=== PATIENT | male | born 1985 | race Caucasian/White ===

== ENCOUNTER 2017-02-05 22:28 | Inpatient (IN) | payer MEDICAID ==
[2017-02-05] MEDS ORDERED: ONDANSETRON 4 MG/2 ML VIAL ONE (22:39)
[2017-02-05] MEDS ORDERED: ONDANSETRON 4 MG/2 ML VIAL IVP ONE (22:44)
[2017-02-05] MEDS ORDERED: NS 1,000 ML IV ONE ×2 (22:44→22:46)
[2017-02-05] MEDS ORDERED: LORazepam 2 MG/ML INJ IVP ONE ×2 (22:46→23:20)
[2017-02-05] MEDS ORDERED: chlordiazePOXIDE 25 MG CAP PO ONE (22:46)
[2017-02-05 22:51] LABS: % IMMATURE GRANULYOCYTES 0.7 % (0.0-1.1); ABSOLUTE IMMATURE GRANULOCYTES 0.09 10^3/uL (0.00-0.10); ADD DIFF? NO; ADD MORPH? NO; ADD SCAN? NO; ATYPICAL LYMPHOCYTE FLAG 0 (0-99); FRAGMENT RBC FLAG 0 (0-99); HEMATOCRIT 53.6 % (40.0-51.0); HEMOGLOBIN 19.9 g/dL (13.7-17.5); LEFT SHIFT FLG 0 (0-99); LIPEMIA HEMOLYSIS FLAG 90 (0-99); MEAN CELL HEMOGLOBIN 35.3 pg (27.9-34.1); MEAN CELL HEMOGLOBIN CONCENTR. 37.1 g/dL (32.4-36.7); MEAN CELL VOLUME 95.2 fL (81.5-99.8); MEAN PLATELET VOLUME 10.4 fL (8.7-11.7); PLATELET CLUMPS FLAG 0 (0-99); PLATELET COUNT 225 10^3/uL (150-400); RED BLOOD CELL COUNT 5.63 10^6/uL (4.40-6.38); RED CELL DISTRIBUTION WIDTH 13.2 % (11.5-15.2)
[2017-02-05 22:58] LABS: ALANINE AMINOTRANSFERASE 78 IU/L (21-72); ALKALINE PHOSPHATASE 81 IU/L (38-126); ANION GAP 35 mEq/L (8-16); ASPARTATE AMINOTRANSFERASE 80 IU/L (17-59); BILIRUBIN,TOTAL 1.8 mg/dL (0.1-1.4); BILIRUBIN-CONJUGATED 0.8 mg/dL (0.0-0.5); CALCIUM 10.3 mg/dL (8.5-10.4); CARBON DIOXIDE 11 mEq/l (22-31); CHLORIDE 95 mEq/L (97-110); CREATININE 0.7 mg/dL (0.7-1.3); GLOMERULAR FILTRATION RATE > 60; GLUCOSE 70 mg/dL (70-100); POTASSIUM 4.7 mEq/L (3.5-5.2); SODIUM 141 mEq/L (134-144); TOTAL PROTEIN 8.9 g/dL (6.3-8.2)
[2017-02-05 23:13] LABS: ALBUMIN > 6.0 g/dL (3.5-5.0)
[2017-02-05 23:31] LABS: ETHANOL SERUM 156 mg/dL (0-10)
--- NOTE | 2017-02-05 23:50 | EDPHY ---
H & P Stated Complaint: Nausea and vomiting, ETOH this morning - Personal History Current Tetanus/Diphtheria Vaccine: Yes Tetanus Vaccine Date: 04/2013 - Medical/Surgical History Hx Asthma: No Hx Chronic Respiratory Disease: No Hx Diabetes: No Hx Cardiac Disease: No Hx Renal Disease: No Hx Cirrhosis: No Hx Alcoholism: Yes Hx HIV/AIDS: No Hx Splenectomy or Spleen Trauma: No Other PMH: PMH: ETOH; adhd; depression; antisocial personality disorder;. PSH: denies - Social History Smoking Status: Former smoker Time Seen by Provider: 02/05/17 22:42 HPI/ROS: Chief complaint: Alcohol withdrawal History of present illness: This is a 31-year-old male who presents to the emergency department for evaluation of what he believes is alcohol withdrawal. Patient reports he does have a history of alcohol abuse. Patient went on an alcohol binge over the last few days. His last drink was earlier this morning. States he started to feel unwell describing generalized malaise, nausea and vomiting and some tremulousness. He has gone through withdrawal before. Denies other associated signs or symptoms at this time. Review of systems: A 10 point review of systems was obtained and other than described above was negative (Alvino Maxwell) - Physical Exam Exam: General Appearance: Alert, unwell appearing. Eyes: Pupils equal and round no pallor or injection. ENT, Mouth: Mucous membranes moist. Respiratory: There are no retractions, lungs are clear to auscultation. Cardiovascular: Tachycardic with regular rhythm. Gastrointestinal: Abdomen is soft and non tender, no masses, bowel sounds normal. Neurological: Alert and oriented x4. Strength and sensation intact and symmetrical. Skin: Warm and dry, no rashes. Musculoskeletal: Neck is supple non tender. Extremities are symmetrical, full range of motion. Psychiatric: There is no agitation (Alvino Maxwell) Constitutional: Initial Vital Signs Temperature (C) 36.9 C 02/05/17 22:34 Heart Rate 128 H 02/05/17 22:34 Respiratory Rate 20 02/05/17 22:34 Blood Pressure 144/107 H 02/05/17 22:34 O2 Sat (%) 94 02/05/17 22:34 O2 Delivery Mode Room Air Allergies/Adverse Reactions: No Known Allergies Allergy (Verified 06/01/13 22:41) Home Medications: Medication Instructions Recorded traZODone [traZODONE 100MG (RX)] 100 mg PO HS 06/01/13 FLUoxetine [Prozac] 40 mg PO DAILY 06/02/13 Glucosamine/Chondroitin 1 tab PO DAILY 06/02/13 [Glucosamine/Chondroitin (OTC)] Multivitamins [Tab-A-Yo] 1 tab PO DAILY 06/02/13 Naltrexone HCl [Revia 50mg (RX)] 100 mg PO DAILY 06/02/13 Medical Decision Making ED Course/Re-evaluation: Patient discussed with my secondary supervising physician Dr. Vanessa Angeles. Patient presents to the emergency department concerned he is going through alcohol withdrawal. On presentation he is unwell appearing. Hypertensive and tachycardic. He is IV hydrated and treated with IV Ativan and oral Librium. He remains unwell appearing and tachycardic. Blood studies are concerning for significantly decreased bicarbonate, concerned for alcoholic ketoacidosis. Patient will be admitted for further evaluation and care. He is admitted to Dr. Rudi Shea. The plan has been discussed with the patient voiced understanding and agreement with it. (Alvino Maxwell) Differential Diagnosis: Included but not limited to alcohol intoxication, alcohol withdrawal, polysubstance abuse (Alvino Maxwell) Other Provider: PHYSICIAN DOCUMENTATION: The patient was evaluated and managed by the Physician Automotive Teacher. My co- signature indicates that I have reviewed this chart and I agree with the findings and plan of care as documented. I am the secondary supervising physician. (Vanessa Angeles) - Data Points Laboratory Results: Laboratory Results 02/05/17 22:33 02/05/17 22:33 02/05/17 02/05/17 22:33 22:33 WBC 13.56 10^3/uL H 10^3/uL (3.80-9.50) RBC 5.63 10^6/uL 10^6/uL (4.40-6.38) Hgb 19.9 g/dL H g/dL (13.7-17.5) Hct 53.6 % H % (40.0-51.0) MCV 95.2 fL fL (81.5-99.8) MCH 35.3 pg H pg (27.9-34.1) MCHC 37.1 g/dL H g/dL (32.4-36.7) RDW 13.2 % % (11.5-15.2) Plt Count 225 10^3/uL 10^3/uL (150-400) MPV 10.4 fL fL (8.7-11.7) Neut % (Auto) 90.0 % H % (39.3-74.2) Lymph % (Auto) 6.3 % L % (15.0-45.0) Rich % (Auto) 2.4 % L % (4.5-13.0) Eos % (Auto) 0.0 % L % (0.6-7.6) Baso % (Auto) 0.6 % % (0.3-1.7) Nucleat RBC Rel Count 0.0 % % (0.0-0.2) Absolute Neuts (auto) 12.21 10^3/uL H 10^3/uL (1.70-6.50) Absolute Lymphs (auto) 0.86 10^3/uL L 10^3/uL (1.00-3.00) Absolute Monos (auto) 0.32 10^3/uL 10^3/uL (0.30-0.80) Absolute Eos (auto) 0.00 10^3/uL L 10^3/uL (0.03-0.40) Absolute Basos (auto) 0.08 10^3/uL 10^3/uL (0.02-0.10) Absolute Nucleated RBC 0.00 10^3/uL 10^3/uL (0-0.01) Immature Gran % 0.7 % % (0.0-1.1) Immature Gran # 0.09 10^3/uL 10^3/uL (0.00-0.10) Sodium 141 mEq/L mEq/L (134-144) Potassium 4.7 mEq/L mEq/L (3.5-5.2) Chloride 95 mEq/L L mEq/L (97-110) Carbon Dioxide 11 mEq/l L mEq/l (22-31) Anion Gap 35 mEq/L H mEq/L (8-16) BUN 9 mg/dL mg/dL (7-23) Creatinine 0.7 mg/dL mg/dL (0.7-1.3) Estimated GFR > 60 Glucose 70 mg/dL mg/dL (70-100) Calcium 10.3 mg/dL mg/dL (8.5-10.4) Total Bilirubin 1.8 mg/dL H mg/dL (0.1-1.4) Conjugated Bilirubin 0.8 mg/dL H mg/dL (0.0-0.5) Unconjugated Bilirubin 1.0 mg/dL mg/dL (0.0-1.1) AST 80 IU/L H IU/L (17-59) ALT 78 IU/L H IU/L (21-72) Alkaline Phosphatase 81 IU/L IU/L (38-126) Total Protein 8.9 g/dL H g/dL (6.3-8.2) Albumin > 6.0 g/dL H g/dL (3.5-5.0) Lipase 61.0 IU/L IU/L (23-300) Ethyl Alcohol 156 mg/dL H mg/dL (0-10) Medications Given: Discontinued Medications Chlordiazepoxide HCl (Librium) 50 mg PO EDNOW ONE Stop: 02/05/17 22:47 Last Admin: 02/05/17 22:55 Dose: 50 mg Sodium Chloride (Ns) 1,000 mls @ 0 mls/hr IV ONCE ONE PRN Reason: Wide Open Stop: 02/05/17 22:45 Last Admin: 02/05/17 22:44 Dose: 1,000 mls Sodium Chloride (Ns) 1,000 mls @ 0 mls/hr IV EDNOW ONE; Wide Open PRN Reason: Protocol Stop: 02/05/17 22:47 Last Admin: 02/05/17 22:55 Dose: 1,000 mls Sodium Chloride (Ns) 1,000 mls @ 3,000 mls/hr IV ONCE ONE Stop: 02/06/17 00:41 Last Admin: 02/06/17 01:33 Dose: 1,000 mls Lorazepam (Ativan Injection) 2 mg IVP EDNOW ONE Stop: 02/05/17 22:47 Last Admin: 02/05/17 22:55 Dose: 2 mg Lorazepam (Ativan Injection) 2 mg IVP EDNOW ONE Stop: 02/05/17 23:21 Last Admin: 02/05/17 23:48 Dose: 2 mg Ondansetron HCl (Zofran) 4 mg IVP EDNOW ONE Stop: 02/05/17 22:45 Last Admin: 02/05/17 22:44 Dose: 4 mg Departure - Departure Disposition: [facility] Clinical Impression: Alcoholic ketoacidosis Alcohol withdrawal Qualifiers: Complication of substance-induced condition: uncomplicated Qualified Code(s): F10.230 - Alcohol dependence with withdrawal, uncomplicated Condition: Fair
[2017-02-06] MEDS ORDERED: NS 1,000 ML IV ONE (00:22)
[2017-02-06] MEDS ORDERED: TEMAZEPAM 15 MG CAP PO PRN (00:22)
[2017-02-06] MEDS ORDERED: ACETAMINOPHEN 325 MG TAB PO PRN (00:22)
[2017-02-06] MEDS ORDERED: traZODone 100 MG TAB PO PRN (00:29)
[2017-02-06] MEDS ORDERED: NS 1,000 ML IV SCH (00:30)
--- NOTE | 2017-02-06 00:33 | CPEKG ---
Heart Rate: 116 RR Interval: 517 P-R Interval: 148 QRSD Interval: 74 QT Interval: 324 QTC Interval: 451 P [place]: 61 QRS [place]: 11 T Wave [place]: 14 EKG Severity - OTHERWISE NORMAL ECG - EKG Impression: SINUS TACHYCARDIA Preliminary Awaiting MD Review
[2017-02-06 00:59] LABS: INR 1.08 (0.83-1.16); PROTIME(PATIENT) 13.9 SEC (12.0-15.0)
[2017-02-06] MEDS: D5W NS 1,000 ML IV SCH ×2 (01:32→09:20)
[2017-02-06 02:23] LABS: PHENCYCLIDINE URINE BCH < 6 ng/ml (NEGATIVE); PHENCYCLIDINE URINE BCH NEGATIVE (NEGATIVE); TETRAHYDROCANNABINOL URINE < 5 ng/mL (NEGATIVE); TETRAHYDROCANNABINOL URINE NEGATIVE (NEGATIVE)
--- NOTE | 2017-02-06 03:18 | GHP ---
[f rep st] HISTORY AND PHYSICAL DATE OF ADMISSION: 02/05/2017 CHIEF COMPLAINT: Alcohol abuse. HISTORY OF PRESENT ILLNESS: This is a 31-year-old man who had been previously sober for about the last 2 years, started drinking again 4 days ago. He says that he was drinking extremely heavily, more than a bottle of whiskey a day. His p.o. intake has been poor. Today, he tells me, that he began to not tolerate the alcohol. He has thrown up 3 times, and not kept any food or water down today, though he has been trying to drink water. He does have some mild abdominal pain though he describes this more as discomfort. He tells me that he would like to become sober again. He restarted drinking due to losing his job and other social stressors. He is not having any chest pain or shortness of breath. PAST MEDICAL/SURGICAL HISTORY: 1. History of alcohol abuse. 2. ADHD. 3. Depression. 4. Insomnia. MEDICATIONS: Include Abilify and Lunesta. ALLERGIES: No known drug allergies. FAMILY HISTORY: No significant alcohol abuse in his family. SOCIAL HISTORY: He quit smoking. He drinks alcohol as above. REVIEW OF SYSTEMS: A 10-point review of systems is conducted and is negative except per HPI. PHYSICAL EXAMINATION: VITAL SIGNS: Blood pressure 111/69, heart rate 103, respiration rate 20, saturating 97% on room air. Temperature 36.9. GENERAL: The patient is a pleasant man, who appears somewhat uncomfortable, lying in bed. He is also somewhat pale. HEENT: Shows him to be normocephalic, atraumatic. CARDIOVASCULAR: Shows him to be tachycardic. There are no murmurs , rubs, or gallops. There is no elevated JVD. No lower extremity edema. PULMONARY: Shows lungs clear to auscultation bilaterally. He is not in any respiratory distress. ABDOMEN: Soft. He is mildly diffusely tender to palpation. There is no rebound or guarding. There are no masses or hepatosplenomegaly. SKIN: Shows no rash. : No Bernal. NEUROLOGIC: Shows him to be alert and oriented x3. He is moving all extremities. PSYCHIATRIC: Shows normal mood and affect. LABORATORY DATA: White count is 13.5, hemoglobin 19.9, platelets are 225. His bicarb is 11, creatinine 0.7. AST is 80, ALT is 78. His total protein is 8.9. His alcohol level is 156. DATA: 1. I discussed this with Alvino Maxwell. Will admit to step-down unit. 2. I personally viewed and interpreted his EKG. This shows sinus tachycardia. There are no acute ischemic changes. IMPRESSION AND PLAN: This is a 31-year-old man with significant alcohol abuse, presents with dehydration, alcohol withdrawal, acidosis. 1. Alcohol abuse and withdrawal: If his history is accurate, I do not suspect severe withdrawal. It is possible that his history is more extensive than he is attesting to. Did have a level of 156. I have placed him on CIWA, will triage him to the step-down unit. Will give him thiamine, replace his electrolytes as needed. 2. Anion gap metabolic acidosis: I suspect that this is a combination of alcoholic ketoacidosis, potentially starvation ketoacidosis. I have drawn a lactate to assure no severe lactic acidosis. Will follow this again tomorrow morning with his a.m. labs. 3. Tachycardia: This is likely multifactorial in the setting of severe dehydration (elevated protein levels, polycythemic), potentially some alcohol withdrawal. I do not suspect any pulmonary embolism at this point. It is sinus. I do not suspect any other primary cardiac arrhythmia. I think that this will likely resolve with fluids. 4. Mild elevated transaminases: Likely mild hepatitis. I have checked an INR. 5. Polycythemia: I think this is due to dehydration. 6. Leukocytosis: I do not have any evidence of infection or sepsis at this point. Will recheck tomorrow morning. /[id number]/MODL MTDD
[2017-02-06] MEDS: ONDANSETRON 4 MG/2 ML VIAL IVP PRN (03:57)
[2017-02-06 06:03] LABS: % IMMATURE GRANULYOCYTES 0.5 % (0.0-1.1); ABSOLUTE IMMATURE GRANULOCYTES 0.04 10^3/uL (0.00-0.10); ADD DIFF? NO; ADD MORPH? NO; ADD SCAN? NO; ATYPICAL LYMPHOCYTE FLAG 0 (0-99); FRAGMENT RBC FLAG 0 (0-99); HEMOGLOBIN 14.6 g/dL (13.7-17.5); LEFT SHIFT FLG 0 (0-99); LIPEMIA HEMOLYSIS FLAG 90 (0-99); MEAN CELL HEMOGLOBIN 34.9 pg (27.9-34.1); MEAN CELL HEMOGLOBIN CONCENTR. 36.5 g/dL (32.4-36.7); MEAN CELL VOLUME 95.7 fL (81.5-99.8); MEAN PLATELET VOLUME 10.3 fL (8.7-11.7); PLATELET CLUMPS FLAG 0 (0-99); PLATELET COUNT 140 10^3/uL (150-400); RED BLOOD CELL COUNT 4.18 10^6/uL (4.40-6.38); RED CELL DISTRIBUTION WIDTH 13.2 % (11.5-15.2)
[2017-02-06 06:11] LABS: ALANINE AMINOTRANSFERASE 56 IU/L (21-72); ALBUMIN 3.9 g/dL (3.5-5.0); ALKALINE PHOSPHATASE 43 IU/L (38-126); ANION GAP 11 mEq/L (8-16); ASPARTATE AMINOTRANSFERASE 47 IU/L (17-59); BILIRUBIN,TOTAL 1.3 mg/dL (0.1-1.4); CALCIUM 8.2 mg/dL (8.5-10.4); CARBON DIOXIDE 20 mEq/l (22-31); CHLORIDE 105 mEq/L (97-110); CREATININE 0.6 mg/dL (0.7-1.3); GLOMERULAR FILTRATION RATE > 60; GLUCOSE 155 mg/dL (70-100); MAGNESIUM 1.7 mg/dL (1.6-2.3); SODIUM 136 mEq/L (134-144); TOTAL PROTEIN 5.7 g/dL (6.3-8.2)
[2017-02-06 06:16] LABS: INR 1.14 (0.83-1.16); PROTIME(PATIENT) 14.5 SEC (12.0-15.0)
[2017-02-06] MEDS: LORazepam 2 MG/ML INJ IVP PRN ×2 (08:12→23:13)
[2017-02-06] MEDS: THIAMINE HCL 100 MG TAB PO SCH (08:12)
[2017-02-06] MEDS: ONDANSETRON DISINTEGRATING 4 MG TAB PO PRN ×2 (11:30→23:07)
--- NOTE | 2017-02-06 18:09 | HOSPPROG ---
Hospitalist Progress Note Assessment/Plan: # Acute alcohol withdrawal - pt with improved sx overnight - tachycardia resolved tremor mild this am TELE (personally reviewed and interpreted) sinus - cont CIWA - adding scheduled TID librium # Tachycardia - 2/2 alcohol withdrawal - improved with IVF and tx overnight- oxygen saturations 95% on RA # Polycythemia - HCT 53-> 40 this am -resolved with IVF # proph - lovenox # diet - regular # dispo - > 2 MN as requires treatment for acute withdrawal I have discussed the case with RN - will aggressively tx nausea and withdrawal this afternoon Subjective: extremely nauseated Objective: Vital Signs Temp Pulse Resp BP Pulse Ox 36.7 C 64 19 150/96 H 96 02/06/17 08:00 02/06/17 16:00 02/06/17 16:00 02/06/17 16:00 02/06/17 16:00 Laboratory Results 02/06/17 05:37 02/06/17 05:37 02/05/17 02/06/17 02/07/17 05:59 05:59 05:59 Intake Total 2928 Output Total 375 Balance 2553 PT 14.5 SEC (12.0-15.0) 02/06/17 05:37 INR 1.14 (0.83-1.16) 02/06/17 05:37 - Physical Exam Constitutional: appears nourished Eyes: anicteric sclera Ears, Nose, Mouth, Throat: dry mucous membranes Cardiovascular: regular rate and rhythym Respiratory: no respiratory distress, no rales or rhonchi Gastrointestinal: normoactive bowel sounds Genitourinary: no bladder fullness Skin: warm, normal color Musculoskeletal: No asymmetric calves Neurologic: AAOx3 Psychiatric: interacting appropriately ICD10 Worksheet Patient Problems: Problems Problem Status Onset Alcohol withdrawal Acute Alcoholic ketoacidosis Acute Alcohol dependence Acute Psychosis Acute
[2017-02-06] MEDS ORDERED: ARIPiprazole 2 MG TAB PO SCH (21:00)
[2017-02-07 08:32] VITALS: BP 136/96; PULSE 109; RESP 10; TEMP 98.2; O2SAT 98
[2017-02-07] MEDS: THIAMINE HCL 100 MG TAB PO SCH (08:57)
[2017-02-07] MEDS: ONDANSETRON 4 MG/2 ML VIAL IVP PRN (09:01)
--- NOTE | 2017-02-08 11:20 | GDS ---
[f rep st] DISCHARGE SUMMARY DISCHARGE DIAGNOSES: Include: 1. Acute alcohol withdrawal. 2. Alcohol abuse. 3. Attention deficit hyperactivity disorder. 4. Depression. 5. Insomnia. HISTORY OF PRESENT ILLNESS: A 31-year-old male, who presented after being sober for 2 years and hav ing a 4-day drinking binge, developing severe nausea, vomiting and withdrawal symptoms afterwards. For details of patient's initial presentation, please see the history and physical dated 02/05/2017. CONSULTATIVE SERVICES ON THIS PATIENT: None. PROCEDURES ON THIS PATIENT: None. HOSPITAL COURSE BY ISSUE: 1. Acute alcohol withdrawal. Patient was admitted, placed on CIWA protocol and treated with both L ibrium and IV Ativan to help with his tremulousness and vital sign abnormalities. The patient addit ionally had severe nausea and vomiting which we used IV antiemetics to treat. On the day of disposi tion, the patient has minimal tremor, vital signs are normal and he is tolerating a normal diet. Th e patient will be discharged to home with p.r.n. oral antiemetics and strong encouragement to ifli conway with his outpatient treatment program for ongoing support with abstinence post discharge. 2. Acute leukocytosis. This resolved without treatment. MEDICATIONS AT THE TIME OF DISPOSITION: Please reference the med rec printed on 02/07/2017. FOLLOWUP APPOINTMENTS FOR THIS PATIENT: Include with his primary care provider in the next 1-2 week s and re-establishing with his abstinence support program in the next 24 hours. I spent greater than 30 minutes in the planning and coordination of this discharge. /[id number]/MODL
== END 2017-02-07 10:23 | disposition home or self-care (01) | DRG 897 ==
LOC: EDUNIT# → F2N 02-06 01:01
PROVIDERS: ADMIT Student in an Organized Health Care Education/Training Program; ATTEND Student in an Organized Health Care Education/Training Program
DX: F10.239 Alcohol dependence with withdrawal, unspecified (principal); E87.2 Acidosis; R00.0 Tachycardia, unspecified; R74.0 Nonspecific elevation of levels of transaminase and lactic acid dehydrogenase [LDH]; D75.1 Secondary polycythemia; F90.9 Attention-deficit hyperactivity disorder, unspecified type; Z87.891 Personal history of nicotine dependence; F32.9 Major depressive disorder, single episode, unspecified; G47.00 Insomnia, unspecified
CPT/HCPCS: 80305; 80307; 96374; G0480; J2060; J2405

== ENCOUNTER 2017-02-20 14:36 | Emergency (ER) | payer MEDICAID ==
[2017-02-20] MEDS ORDERED: ONDANSETRON DISINTEGRATING 4 MG TAB PO ONE (14:47)
[2017-02-20] MEDS ORDERED: chlordiazePOXIDE 25 MG CAP PO ONE (14:47)
[2017-02-20] MEDS ORDERED: NS 1,000 ML IV ONE (16:59)
[2017-02-20] MEDS ORDERED: LORazepam 2 MG/ML INJ IVP ONE ×3 (16:59→18:11)
--- NOTE | 2017-02-20 17:05 | EDPHY ---
H & P Stated Complaint: FROM [facility], CR[facility] Time Seen by Provider: 02/20/17 16:51 HPI/ROS: CHIEF COMPLAINT: Withdrawal HISTORY OF PRESENT ILLNESS: The patient is a 31-year-old man with a history of alcoholism who comes to the emergency department complaining tremors and abdominal cramping. He states his last drink was about 24 hours ago. He checked himself into the alcohol recovery Center this evening but They could not give him any medications. He was given Zofran and Librium at triage but is still somewhat tremulous and tachycardic. REVIEW OF SYSTEMS: Constitutional: denies: chills, fever, recent illness, recent injury EENTM: denies: blurred vision, double vision, nose congestion Respiratory: denies: cough, shortness of breath Cardiac: denies: chest pain, irregular heart rate, lightheadedness, palpitations Gastrointestinal/Abdominal: denies: abdominal pain, diarrhea, nausea, vomiting, blood streaked stools Genitourinary: denies: dysuria, frequency, hematuria, pain Musculoskeletal: denies: joint pain, muscle pain Skin: denies: lesions, rash, jaundice, bruising Neurological: See HPI denies: headache, numbness, paresthesia, tingling, dizziness, weakness Hematologic/Lymphatic: denies: blood clots, easy bleeding, easy bruising Immunologic/allergic: denies: HIV/AIDS, transplant EXAM: GENERAL: Overweight HEAD: Atraumatic, normocephalic. EYES: Pupils equal round and reactive to light, extraocular movements intact, sclera anicteric, conjunctiva are normal. ENT: TMs normal, nares patent, oropharynx clear without exudates. Moist mucous membranes. NECK: Normal range of motion, supple without lymphadenopathy or JVD. LUNGS: Breath sounds clear to auscultation bilaterally and equal. No wheezes rales or rhonchi. HEART: Regular rate and rhythm without murmurs, rubs or gallops. ABDOMEN: Soft, nontender, normoactive bowel sounds. No guarding, no rebound. No masses appreciated. BACK: No CVA tenderness, no spinal tenderness, step-offs or deformities EXTREMITIES: Normal range of motion, no pitting or edema. No clubbing or cyanosis. NEUROLOGICAL: Mildly tremulous, Cranial nerves II through XII grossly intact. Normal speech, normal gait. 5/5 strength, normal movement in all extremities, normal sensation PSYCH: Normal mood, normal affect. SKIN: Warm, dry, normal turgor, no visible rashes or lesions. Source: Patient Exam Limitations: No limitations - Personal History Current Tetanus Diphtheria and Acellular Pertussis (TDAP): Yes Tetanus Vaccine Date: 04/2013 - Medical/Surgical History Hx Asthma: No Hx Chronic Respiratory Disease: No Hx Diabetes: No Hx Cardiac Disease: No Hx Renal Disease: No Hx Cirrhosis: No Hx Alcoholism: Yes Hx HIV/AIDS: No Hx Splenectomy or Spleen Trauma: No Other PMH: PMH: ETOH; adhd; depression; antisocial personality disorder;. PSH: denies - Social History Smoking Status: Former smoker Alcohol Use: Heavy Drug Use: None Constitutional: Initial Vital Signs Temperature (C) 37.0 C 02/20/17 14:40 Heart Rate 111 H 02/20/17 14:40 Respiratory Rate 18 02/20/17 14:40 Blood Pressure 165/106 H 02/20/17 14:40 O2 Sat (%) 96 02/20/17 14:40 O2 Delivery Mode Room Air Allergies/Adverse Reactions: No Known Allergies Allergy (Verified 06/01/13 22:41) Home Medications: Medication Instructions Recorded ARIPiprazole [Abilify 2 mg (*)] 2 mg PO HS 02/06/17 Eszopiclone [Lunesta] 1 mg PO HS 02/06/17 Medical Decision Making ED Course/Re-evaluation: 6:09 p.m. the patient is feeling much better. He is no longer tachycardic or tremulous. We will [facility] him to [facility]. He will give him another dose of Ativan before he goes. He has been hydrated. We will send him with a Librium prepack. Differential Diagnosis: Partial list of the Differential diagnosis considered include but were not limited to; alcohol withdrawal, anxiety and although unlikely based on the history and physical exam, I also considered arrhythmia, electrolyte abnormality , acute coronary disease. I discussed these differential diagnoses and the plan with the patient as well as the usual and expected course. The patient understands that the diagnosis is provisional and that in medicine we are not always correct and that further workup is often warranted. Usual and customary warnings were given. All of the patient's questions were answered. The patient was instructed to return to the emergency department should the symptoms at all worsen or return, otherwise to followup with the physician as we discussed. - Data Points Medications Given: Discontinued Medications Chlordiazepoxide (Librium 25 Mg Prepack#6) 1 btl TAKEHOME EDNOW ONE Stop: 02/20/17 18:11 Last Admin: 02/20/17 18:18 Dose: 1 btl Chlordiazepoxide HCl (Librium) 50 mg PO EDNOW ONE Stop: 02/20/17 14:48 Last Admin: 02/20/17 14:53 Dose: 50 mg Sodium Chloride (Ns) 1,000 mls @ 0 mls/hr IV ONCE ONE; Wide Open PRN Reason: Protocol Stop: 02/20/17 17:00 Last Admin: 02/20/17 17:09 Dose: 1,000 mls Lorazepam (Ativan Injection) 2 mg IVP EDNOW ONE Stop: 02/20/17 17:00 Last Admin: 02/20/17 17:10 Dose: 2 mg Lorazepam (Ativan Injection) 1 mg IVP EDNOW ONE Stop: 02/20/17 18:10 Last Admin: 02/20/17 18:15 Dose: Not Given Lorazepam (Ativan Injection) 1 mg IVP EDNOW ONE Stop: 02/20/17 18:12 Last Admin: 02/20/17 18:18 Dose: 1 mg Ondansetron HCl (Zofran Odt) 4 mg PO EDNOW ONE Stop: 02/20/17 14:48 Last Admin: 02/20/17 14:53 Dose: 4 mg Departure - Departure Disposition: Home, Routine, Self-Care Clinical Impression: Alcohol withdrawal Qualifiers: Complication of substance-induced condition: with unspecified complication Qualified Code(s): F10.239 - Alcohol dependence with withdrawal, unspecified Condition: Fair Instructions: Alcohol Withdrawal (ED) Referrals: NONE *PRIMARY CARE P,. [Primary Care Provider] - As per Instructions Froylan Grullon MD [Medical Doctor] - As per Instructions
[2017-02-20] MEDS ORDERED: CHLORDIAZEPOXIDE 25MG PREPK#6 BTL TAKEHOME ONE (18:10)
[2017-02-20 18:37] VITALS: BP 144/89; PULSE 94; RESP 16; TEMP 98.4; O2SAT 98
== END 2017-02-20 18:46 | disposition home or self-care (01) ==
DX: F10.239 Alcohol dependence with withdrawal, unspecified (principal); E86.9 Volume depletion, unspecified; Z87.891 Personal history of nicotine dependence
CPT/HCPCS: 96374; J2060

== ENCOUNTER 2017-03-02 02:06 | Emergency (ER) | payer MEDICAID ==
[2017-03-02] MEDS ORDERED: LORazepam 2 MG/ML INJ IVP ONE ×4 (02:15→05:25)
[2017-03-02] MEDS ORDERED: NS 1,000 ML IV ONE ×2 (02:18→04:04)
--- NOTE | 2017-03-02 02:22 | EDPHY ---
H & P Time Seen by Provider: 03/02/17 02:14 HPI/ROS: Chief Complaint: Chest pain HPI: 31-year-old male in alcohol withdrawal presenting [facility] after the onset of left lower chest pain below his left nipple. Patient states that it came on suddenly. Denies any shortness of breath. It is nonradiating. At worst is about an 8/10. Did state that he was experiencing pretty significant withdrawal symptoms at that time and was receiving Librium. No nausea or vomiting. No shortness of breath. No cough. Did have a fall down the stairs a week ago but has not had any chest pain or symptoms from that since. Has a family history of his father having a heart attack in his 50s. He received 324 mg of aspirin, 100 mcg of fentanyl and 4 mg of Zofran from EMS. ROS: 10 point Review of Systems is negative except as noted in the HPI. PMH: Depression Social History: Occasional smoking, daily heavy alcohol, no recreational drug use Family History: Father had an MO in his early 50s Physical Exam: Gen: Awake, Alert, very tremulous HEENT: Nose: no rhinorrhea Eyes: PERRLA, EOMI Mouth: Moist mucosa Neck: Supple, no JVD Chest: Patient has tenderness his anterior chest wall just below his left nipple along the rib reproducing his presenting complaint there is no step-offs or crepitus. No deformity., lungs clear to auscultation Heart: S1, S2 normal, no murmur Abd: Soft, his upper central abdominal tenderness reproducing his presenting complaint. No right upper quadrant tenderness. No guarding. Back: no CVA tenderness, no midline tenderness Ext: no edema, non-tender Skin: no rash Neuro: CN II-XII intact, Sensation grossly intact, Strength 5/5 in bilateral upper and lower extremities - Personal History Tetanus Vaccine Date: 04/2013 - Medical/Surgical History Hx Asthma: No Hx Chronic Respiratory Disease: No Hx Diabetes: No Hx Cardiac Disease: No Hx Renal Disease: No Hx Cirrhosis: No Hx Alcoholism: Yes Hx HIV/AIDS: No Hx Splenectomy or Spleen Trauma: No Other PMH: PMH: ETOH; adhd; depression; antisocial personality disorder;. PSH: denies - Social History Smoking Status: Former smoker Constitutional: Initial Vital Signs Temperature (C) 36.7 C 03/02/17 02:08 Heart Rate 122 H 03/02/17 02:08 Respiratory Rate 18 03/02/17 02:08 Blood Pressure 142/99 H 03/02/17 02:08 O2 Sat (%) 95 03/02/17 02:08 O2 Delivery Mode Room Air Allergies/Adverse Reactions: No Known Allergies Allergy (Verified 03/02/17 02:20) Home Medications: Medication Instructions Recorded ARIPiprazole [Abilify 2 mg (*)] 2 mg PO HS 02/06/17 Eszopiclone [Lunesta] 1 mg PO HS 02/06/17 Medical Decision Making - Diagnostics EKG Interpretation: ECG time 2:12 a.m. sinus tachycardia with a rate of 118, normal axis, normal intervals, no acute ST or T-wave changes. Impression sinus tachycardia. Imaging Results: Chest x-ray is negative per my interpretation. Imaging: I viewed and interpreted images myself ED Course/Re-evaluation: Patient is somewhat improved after GI cocktail and Toradol. Pain is reproducible in both palpation of his epigastrium and a little bit of his chest wall. ECG is negative. Troponin is negative. I think his symptoms are more consistent with a alcoholic gastritis and acute coronary syndrome. His stool is heme-negative. Has normal H&H. He is also in acute alcohol withdrawal. He is improved after IV Ativan and IV fluids. Patient will be [facility] back [facility] for [facility] care. He will be referred for outpatient follow-up. - Data Points Laboratory Results: Laboratory Results 03/02/17 02:15 03/02/17 02:15 03/02/17 03/02/17 03/02/17 04:20 02:15 02:15 WBC RBC Hgb Hct MCV MCH MCHC RDW Plt Count MPV Neut % (Auto) Lymph % (Auto) Frio % (Auto) Eos % (Auto) Baso % (Auto) Nucleat RBC Rel Count Absolute Neuts (auto) Absolute Lymphs (auto) Absolute Monos (auto) Absolute Eos (auto) Absolute Basos (auto) Absolute Nucleated RBC Immature Gran % Immature Gran # Sodium 143 mEq/L mEq/L (134-144) Potassium 3.8 mEq/L mEq/L (3.5-5.2) Chloride 101 mEq/L mEq/L (97-110) Carbon Dioxide 28 mEq/l mEq/l (22-31) Anion Gap 14 mEq/L mEq/L (8-16) BUN 5 mg/dL L mg/dL (7-23) Creatinine 0.6 mg/dL L mg/dL (0.7-1.3) Estimated GFR > 60 Glucose 87 mg/dL mg/dL (70-100) Calcium 8.5 mg/dL mg/dL (8.5-10.4) Total Bilirubin 2.3 mg/dL H mg/dL (0.1-1.4) Conjugated Bilirubin 0.8 mg/dL H mg/dL (0.0-0.5) Unconjugated Bilirubin 1.5 mg/dL H mg/dL (0.0-1.1) AST 131 IU/L H IU/L (17-59) ALT 72 IU/L IU/L (21-72) Alkaline Phosphatase 112 IU/L IU/L (38-126) Troponin I < 0.012 ng/mL ng/mL (0-0.034) Total Protein 6.7 g/dL g/dL (6.3-8.2) Albumin 4.4 g/dL g/dL (3.5-5.0) Lipase 52.0 IU/L IU/L (23-300) Stool Occult Bld Scrn NEGATIVE (NEGATIVE) 03/02/17 02:15 WBC 6.64 10^3/uL 10^3/uL (3.80-9.50) RBC 4.70 10^6/uL 10^6/uL (4.40-6.38) Hgb 16.5 g/dL g/dL (13.7-17.5) Hct 45.1 % % (40.0-51.0) MCV 96.0 fL fL (81.5-99.8) MCH 35.1 pg H pg (27.9-34.1) MCHC 36.6 g/dL g/dL (32.4-36.7) RDW 15.1 % % (11.5-15.2) Plt Count 92 10^3/uL L 10^3/uL (150-400) MPV 9.8 fL fL (8.7-11.7) Neut % (Auto) 72.1 % % (39.3-74.2) Lymph % (Auto) 16.7 % % (15.0-45.0) Frio % (Auto) 9.3 % % (4.5-13.0) Eos % (Auto) 0.8 % % (0.6-7.6) Baso % (Auto) 0.6 % % (0.3-1.7) Nucleat RBC Rel Count 0.0 % % (0.0-0.2) Absolute Neuts (auto) 4.79 10^3/uL 10^3/uL (1.70-6.50) Absolute Lymphs (auto) 1.11 10^3/uL 10^3/uL (1.00-3.00) Absolute Monos (auto) 0.62 10^3/uL 10^3/uL (0.30-0.80) Absolute Eos (auto) 0.05 10^3/uL 10^3/uL (0.03-0.40) Absolute Basos (auto) 0.04 10^3/uL 10^3/uL (0.02-0.10) Absolute Nucleated RBC 0.00 10^3/uL 10^3/uL (0-0.01) Immature Gran % 0.5 % % (0.0-1.1) Immature Gran # 0.03 10^3/uL 10^3/uL (0.00-0.10) Sodium Potassium Chloride Carbon Dioxide Anion Gap BUN Creatinine Estimated GFR Glucose Calcium Total Bilirubin Conjugated Bilirubin Unconjugated Bilirubin AST ALT Alkaline Phosphatase Troponin I Total Protein Albumin Lipase Stool Occult Bld Scrn Medications Given: Discontinued Medications Al Hydroxide/Mg Hydroxide (Maalox Susp) 30 ml PO ONCE ONE Stop: 03/02/17 03:23 Last Admin: 03/02/17 03:36 Dose: 30 ml Sodium Chloride (Ns) 1,000 mls @ 0 mls/hr IV ONCE ONE PRN Reason: Wide Open Stop: 03/02/17 02:19 Last Admin: 03/02/17 02:23 Dose: 1,000 mls Sodium Chloride (Ns) 1,000 mls @ 0 mls/hr IV ONCE ONE; Wide Open PRN Reason: Protocol Stop: 03/02/17 04:05 Last Admin: 03/02/17 04:13 Dose: 1,000 mls Ketorolac Tromethamine (Toradol) 15 mg IVP EDNOW ONE Stop: 03/02/17 03:22 Last Admin: 03/02/17 03:36 Dose: 15 mg Lidocaine (Lidocaine 2% Viscous) 15 ml PO ONCE ONE Stop: 03/02/17 03:23 Last Admin: 03/02/17 03:36 Dose: 15 ml Lorazepam (Ativan Injection) 1 mg IVP EDNOW ONE Stop: 03/02/17 02:16 Last Admin: 03/02/17 02:23 Dose: 1 mg Lorazepam (Ativan Injection) 1 mg IVP EDNOW ONE Stop: 03/02/17 03:22 Last Admin: 03/02/17 03:36 Dose: 1 mg Lorazepam (Ativan Injection) 2 mg IVP EDNOW ONE Stop: 03/02/17 04:04 Last Admin: 03/02/17 04:12 Dose: 2 mg Ondansetron HCl (Zofran) 4 mg IVP EDNOW ONE Stop: 03/02/17 02:43 Last Admin: 03/02/17 02:45 Dose: 4 mg Ondansetron HCl (Zofran) 4 mg IVP EDNOW ONE Stop: 03/02/17 04:04 Last Admin: 03/02/17 04:12 Dose: 4 mg Departure - Departure Disposition: Home, Routine, Self-Care Clinical Impression: Gastritis, Alcohol withdrawal Condition: Good Instructions: Gastritis (ED), Alcohol Withdrawal (ED), Chlordiazepoxide (By mouth) Additional Instructions: You may take an [id number] antacid such as Pepcid according to label instructions. Follow up with primary care physician in 2-3 days for further evaluation. Return emergency depart for increasing pain, nausea, vomiting, fevers, chills, or any other concerns. Referrals: [facility],. [Clinic] - As per Instructions
[2017-03-02 02:23] VITALS: TEMP 98.1
[2017-03-02 02:25] LABS: % IMMATURE GRANULYOCYTES 0.5 % (0.0-1.1); ABSOLUTE IMMATURE GRANULOCYTES 0.03 10^3/uL (0.00-0.10); ADD DIFF? NO; ADD MORPH? NO; ADD SCAN? NO; ATYPICAL LYMPHOCYTE FLAG 0 (0-99); FRAGMENT RBC FLAG 0 (0-99); HEMATOCRIT 45.1 % (40.0-51.0); HEMOGLOBIN 16.5 g/dL (13.7-17.5); LEFT SHIFT FLG 0 (0-99); LIPEMIA HEMOLYSIS FLAG 90 (0-99); MEAN CELL HEMOGLOBIN 35.1 pg (27.9-34.1); MEAN CELL HEMOGLOBIN CONCENTR. 36.6 g/dL (32.4-36.7); MEAN PLATELET VOLUME 9.8 fL (8.7-11.7); PLATELET CLUMPS FLAG 20 (0-99); PLATELET COUNT 92 10^3/uL (150-400); RED CELL DISTRIBUTION WIDTH 15.1 % (11.5-15.2)
--- NOTE | 2017-03-02 02:33 | CPEKG ---
Heart Rate: 118 RR Interval: 508 P-R Interval: 140 QRSD Interval: 74 QT Interval: 320 QTC Interval: 449 P Rhodes: 59 QRS Rhodes: 3 T Wave Rhodes: 1 EKG Severity - OTHERWISE NORMAL ECG - EKG Impression: SINUS TACHYCARDIA Electronically Signed By: Bubba Lin 02-Mar-2017 05:31:51
[2017-03-02] MEDS ORDERED: ONDANSETRON 4 MG/2 ML VIAL IVP ONE ×2 (02:42→04:03)
[2017-03-02 02:47] LABS: ANION GAP 14 mEq/L (8-16); CALCIUM 8.5 mg/dL (8.5-10.4); CARBON DIOXIDE 28 mEq/l (22-31); CHLORIDE 101 mEq/L (97-110); CREATININE 0.6 mg/dL (0.7-1.3); GLOMERULAR FILTRATION RATE > 60; GLUCOSE 87 mg/dL (70-100); POTASSIUM 3.8 mEq/L (3.5-5.2); SODIUM 143 mEq/L (134-144)
[2017-03-02 02:59] LABS: TROPONIN I < 0.012 ng/mL (0-0.034)
[2017-03-02] MEDS ORDERED: KETOROLAC 15 MG/1 ML SDV IVP ONE (03:21)
[2017-03-02] MEDS ORDERED: MAG HYDROX/AL HYDROX/SIMETH 30 ML UDCUP PO ONE (03:22)
[2017-03-02] MEDS ORDERED: LIDOCAINE 2% VISCOUS 15 ML UDCUP PO ONE (03:22)
[2017-03-02 03:36] LABS: ALBUMIN 4.4 g/dL (3.5-5.0); BILIRUBIN,TOTAL 2.3 mg/dL (0.1-1.4); BILIRUBIN-CONJUGATED 0.8 mg/dL (0.0-0.5); BILIRUBIN-UNCONJUGATED 1.5 mg/dL (0.0-1.1); TOTAL PROTEIN 6.7 g/dL (6.3-8.2)
[2017-03-02] MEDS ORDERED: PANTOPRAZOLE SODIUM 40 MG in NS 100 ML IV ONE (04:46)
[2017-03-02] MEDS ORDERED: CHLORDIAZEPOXIDE 25MG PREPK#6 BTL TAKEHOME ONE (04:54)
[2017-03-02] MEDS ORDERED: PROMETHAZINE HCL 25 MG/ML INJ IVP ONE (05:22)
[2017-03-02 06:09] VITALS: RESP 16
[2017-03-02 06:52] VITALS: BP 141/80; PULSE 100; O2SAT 97
== END 2017-03-02 06:52 | disposition home or self-care (01) ==
LOC: EDUNIT#
DX: K29.70 Gastritis, unspecified, without bleeding (principal); F10.239 Alcohol dependence with withdrawal, unspecified; E86.9 Volume depletion, unspecified; Z87.891 Personal history of nicotine dependence
CPT/HCPCS: 96365; J1885; J2060; J2405; J2550